=== PATIENT | male | born 1955 | race Caucasian/White ===

== ENCOUNTER 2018-03-02 05:42 | Day surgery (SDC) | payer BC ==
--- NOTE | 2018-02-22 14:39 | HP ---
AMENDED REPORT NOW INCLUDES DESIGNATED COSIGNER HISTORY AND PHYSICAL: DATE OF ADMISSION/SURGERY: 03/02/18 DATE OF OFFICE VISIT: 02/22/18 SURGEON: Jaylene España MD.* (DICTATED BY GAY HICKMAN) PROCEDURE: Left knee arthroscopy plus partial meniscectomy, possible chondroplasty, possible synovectomy. CHIEF COMPLAINT: Left knee pain. HISTORY OF PRESENT ILLNESS: Mr. Gray is a 62-year-old gentleman with continued complaints of left knee pain. He failed conservative treatment and elected to proceed with surgery. PAST MEDICAL HISTORY: Hypertension, history of AFib, and sleep apnea. PAST SURGICAL HISTORY: Cardiac ablation, right knee arthroscopy, hernia repair , and tonsillectomy. CURRENT MEDICATIONS: 1. Ambien 5 mg q.h.s. 2. Inspra 25 mg daily. 3. Nitroglycerin sublingual as needed. 4. Famotidine 20 mg daily. 5. Pravastatin sodium 20 mg daily. 6. Diltiazem 120 mg twice a day. 7. Aspirin 81 mg daily. 8. Fish oil. 9. Fiber as needed. ALLERGIES: No known drug allergies. FAMILY HISTORY: Coronary artery disease, cancer, and diabetes. SOCIAL HISTORY: He is a 62-year-old gentleman, lives with his spouse. Does not smoke or use drugs. Drinks approximately 2 beers a day. REVIEW OF SYSTEMS: A complete 14-point review of systems was reviewed with the patient. It was all negative or noncontributory. He denies a history of DVT, PE, hepatitis, HIV, or anesthesia problems. PHYSICAL EXAMINATION GENERAL: He is well developed, well nourished, in no acute distress. VITAL SIGNS: He stands 68 inches tall, weighs 202 pounds. Blood pressure is 126/76, heart rate is 74. HEENT: Normocephalic, atraumatic. NECK: Supple. No palpable lymph nodes. PULMONARY: Lungs are clear to auscultation bilaterally. CARDIAC: Regular rate and rhythm. Strong S1, S2. ABDOMEN: Soft, nontender, nondistended. NEUROLOGICAL: He is alert and oriented x3. MUSCULOSKELETAL: Left lower extremity: His skin is intact. There are no open wounds or abrasions. There is a moderate joint effusion of the left knee. Range of motion is 10 to 120 degrees of flexion. He has some tenderness along the medial joint line, positive Apley's and Ana Paula's, 2+ dorsalis pedis pulses , intact sensation. His lower extremity muscle group strengths are intact at 5/ 5. ASSESSMENT AND PLAN: Mr. Gray is a 62-year-old gentleman with continued complaints of left knee pain. An MRI confirms a large medial meniscus tear with displacement. He has elected to proceed with left knee arthroscopy with partial meniscectomy, possible chondroplasty, possible synovectomy. The surgery is scheduled for 03/02/[address] España discussed the risks and benefits of the surgery at today's visit and all of his questions were answered. He will follow with Dr. España 2 weeks after the surgery. GAY HICKMAN [id number]/[facility] #: [id number] MTDD
[~2018-03-02 05:42] MED LIST: Buffered Lidocaine 1% SYRIN* 1 ML/SYRINGE INTRADERM ONE
[2018-03-02] MEDS ORDERED: Lactated Ringers 1000 ML Bag* 1,000 ML IV SCH (06:00)
[2018-03-02] MEDS ORDERED: Dexamethasone IV* 4 MG/ML 1 ML (4 MG) IV SLOW PU ONE (06:00)
[2018-03-02] MEDS ORDERED: Buffered Lidocaine 1% SYRIN* 1 ML/SYRINGE INTRADERM ONE (06:44)
[2018-03-02] MEDS ORDERED: ceFAZolin 2 GM PREMIX in ORs 2 GM/50 ML BAG IVPB ONE (06:44)
[2018-03-02] MEDS ORDERED: Dexamethasone IV* 4 MG/ML 1 ML (4 MG) ONE (06:44)
[2018-03-02] MEDS ORDERED: EPINEPHRINE 1 MG/ML 1 ML VIAL ONE (06:57)
[2018-03-02] MEDS ORDERED: methylPREDNISolone ACETATE 80* 80 MG/ML 1 ML VIAL ONE (06:57)
[2018-03-02] MEDS ORDERED: Bupivacaine 0.5%* 50 ML VIAL ONE (06:57)
[2018-03-02] MEDS ORDERED: Midazolam* 1 MG/ML 5 ML VIAL (5 MG) ONE (07:13)
[2018-03-02] MEDS ORDERED: Propofol* 10 MG/ML 20 ML BTL ONE (07:13)
[2018-03-02] MEDS ORDERED: Ketorolac INJ* 30 MG/ML 1 ML VIAL ONE (07:13)
[2018-03-02] MEDS ORDERED: fentaNYL* 50 MCG/ML 2 ML VIAL (100 MCG VIAL) ONE (07:13)
[2018-03-02] MEDS ORDERED: Phenylephrine INJ* 10 MG/ML 1 ML VIAL (10 MG) ONE (07:14)
[2018-03-02] MEDS ORDERED: Chloroprocaine 2%* 20 ML VIAL ONE (07:19)
[2018-03-02] MEDS ORDERED: Bupivacaine 0.5% SDV PF* 30ML VIAL ONE (07:20)
[2018-03-02] MEDS ORDERED: Ondansetron INJ* 2 MG/ML VIAL ONE (07:26)
[2018-03-02] MEDS ORDERED: oxyCODONE/Acetamin 5/325 MG* TAB PO PRN (08:01)
[2018-03-02] MEDS ORDERED: fentaNYL* 50 MCG/ML 2 ML VIAL (100 MCG VIAL) IV PRN (08:01)
[2018-03-02] MEDS ORDERED: DiMENhydriNATE IV* 50 MG/ML VIAL IV PUSH PRN (08:01)
[2018-03-02] MEDS ORDERED: Ondansetron INJ* 2 MG/ML VIAL IV PRN (08:01)
[2018-03-02] MEDS ORDERED: Naloxone* 0.4 MG/ML 1 ML VIAL IV PRN (08:01)
[2018-03-02 09:17] VITALS: BP 125/79
--- NOTE | 2018-03-02 22:31 | OP ---
DATE OF OPERATION: 03/02/18 - [facility] DATE OF : 55 ATTENDING SURGEON: Jaylene España MD. INSPECTOR SUBASSEMBLIES: GAY Murillo. Ms. Guerrero did help throughout the procedure with preparation of the leg, wound retraction, manipulation of the knee, and wound closure. ANESTHESIOLOGIST: Dr. Garzon. ANESTHESIA: Spinal. PRE-OP DIAGNOSIS: Left knee medial meniscal tear. POST-OP DIAGNOSES: 1. Left knee medial meniscal tear. 2. Moderate degenerative osteoarthritis. 3. Anterior synovitis. OPERATIVE PROCEDURE: Left knee arthroscopy with partial medial meniscectomy and anterior synovectomy. ESTIMATED BLOOD LOSS: Less than 25 cc. COMPLICATIONS: None. SPECIMEN: None. BRIEF HISTORY/INDICATION: Mr. Gray is a 62-year-old gentleman with acute onset of left knee pain after a twisting injury. He developed medial joint line pain in the left knee and mechanical symptoms. MRI confirmed a medial meniscal tear. Plain film showed some mild degenerative changes. The patient failed conservative treatment and elected to undergo surgical intervention. He elected to undergo left knee arthroscopy with partial meniscectomy, possible chondro-plasty, possible synovectomy. Informed consent was obtained from the patient. He understood the risks of surgery included but were not limited to bleeding, infection, damage to nearby structures, continued pain, need for further surgery, re-tear of the meniscus, progression of arthritis, stroke, heart attack, blood clot, and . He wished to proceed. INTRAOPERATIVE FINDINGS: Intraoperatively, the patient was noted to have a large displaced tear of the body and posterior horn of the medial meniscus involving the white-red and red-red zone. He was found to have significant amount of anterior synovitis as well as some grade 2 and 3 Outerbridge cartilage changes in the medial and patellofemoral compartment. DESCRIPTION OF PROCEDURE: Mr. Gray was identified in the preanesthesia unit. His left lower extremity was marked as the correct operative side. Informed consent was signed and placed in the chart. The patient was taken to the operating room and placed under spinal anesthesia. Left lower extremity was prepped and draped in the usual sterile fashion. Preop timeout was made to correctly identify the patient, side, and site. Appropriate perioperative antibiotics were given within 1 hour of incision. An anterolateral portal incision was made with a 10-blade and carried down through the capsule. Trocar was introduced. As soon as the light and water sources were turned on, there was immediate visualization of the suprapatellar pouch. A tour of the knee joint was performed. Suprapatellar pouch had no obvious abnormality. Some grade 2 and 3 Outerbridge cartilage changes were noted in the patellofemoral compartment. Medial gutter showed no loose body or plica. Anterior joint line showed significant synovitis. Medial compartment showed grade 2 and 3 Outerbridge cartilage changes. No large cartilage flaps were noted. Medial meniscal tear was visible. ACL and PCL appeared to be intact. The knee was placed in a figure-of- four position. There were no significant degenerative changes noted. There was no obvious meniscal tear. Lateral gutter showed no significant plica or loose body. Under direct visualization, a medial portal incision was made with the 10 blade. Probe was introduced. A second tour of the knee joint was performed. There were no additional findings noted. Shaver and radiofrequency ablation wand were used to perform anterior synovectomy. Any inflamed soft tissues that impinged with range of motion was carefully removed. Next, probing of the medial meniscus showed that there was two large displaced, parrot beak type tears which were reduced into the joint. These had flipped under and into the joint capsule medially. These tears involved the white-red and red-red portion of the body and posterior horn of the medial meniscus. Straight biter, shaver, and radio-frequency ablation wand were used to perform partial medial meniscectomy until a smooth border of the meniscus was obtained. Further probing of the medial meniscus showed no additional tears or flipped fragments. The knee was copiously irrigated with sterile saline. All instruments were removed. Incisions were closed using 3-0 nylon suture. Intraarticular injection of 80 mg Depo-Medrol and 6 cc of 0.25% Marcaine was placed in the knee joint. The patient's incisions were covered with Xeroform, 4x4s, and Webril. Luis wrap and cold pack were placed over this. The patient's anesthesia was reversed without difficulty. He was taken to the PACU in stable condition. Intended weight-bearing will be weightbearing as tolerated. Intended DVT prophylaxis will be aspirin. He will follow up in 2 weeks' time for a suture removal. [id number]/[facility] #: [id number] [facility]
== END 2018-03-02 10:15 | disposition home or self-care (01) ==
LOC: OR 05:42
PROVIDERS: ATTEND Orthopaedic Surgery Adult Reconstructive Orthopaedic Surgery
DX: S83.242A Other tear of medial meniscus, current injury, left knee, initial encounter (principal); M17.12 Unilateral primary osteoarthritis, left knee; M65.862 Other synovitis and tenosynovitis, left lower leg; X50.0XXA Overexertion from strenuous movement or load, initial encounter; Y92.9 Unspecified place or not applicable; G47.33 Obstructive sleep apnea (adult) (pediatric); I10 Essential (primary) hypertension; K21.9 Gastro-esophageal reflux disease without esophagitis
CPT/HCPCS: J0690; J1040; J1100; J1885; J2250; J2400; J2405; J2704; J3010